=== PATIENT | male | born 1985 | race Caucasian/White ===

== ENCOUNTER 2019-10-19 14:44 | Emergency (ER) | payer MEDICAID, SELFPAY ==
[2019-10-19 15:15] VITALS: BP 142/102; PULSE 113; RESP 20; TEMP 36.8; O2SAT 98; BMI 39.9
--- NOTE | 2019-10-19 15:41 | HMH.EDUTC ---
[facility] Disposition Clinical Impression: Dental abscess Disposition: Home, Self-Care Condition on Discharge: Good Instructions: Tooth Abscess, Ibuprofen, Clindamycin Additional Instructions: Call and make appointment today with dentist, could take you several weeks to get in *Take medication as prescribed Follow up with Dentist as advised Return if needed Straight to ER if any life threatening symptoms Prescriptions: Ibuprofen [Ibuprofen 800mg Tablet] 800 mg PO Q8HP PRN #20 tab PRN Reason: Moderate Pain Transmission Status: Received by [id number] clindamycin HCL [Clindamycin HCl 300mg Cap] 300 mg PO Q8 7 Days #21 cap Transmission Status: Received by [id number] Referrals: Toribio Conroy DO [Primary Care Provider] - As needed Rivera Stephenson [Referring] - Time of Disposition: 15:47 Medical Decision Making - Eder Inquiry Pt receiving controlled substance: No Eder was queried for this patient: No Vital Signs: 10/19/19 15:15 Temperature 98.2 F Temperature Source Oral Pulse Rate [Right Brachial] 113 H Respiratory Rate 20 Blood Pressure [Right Arm] 142/102 H Blood Pressure Mean [Right Arm] 115 Blood Pressure Source [Right Arm] Automatic Cuff Blood Pressure Position [Right Arm] Sitting 02 Sat by Pulse Oximetry 98 Oxygen Delivery Method Room Air Orders (Tests/Meds): ED MEDICATIONS Discontinued Medications Generic Name Dose Route Start Last Admin Trade Name Freq PRN Reason Stop Dose Admin Benzocaine/Butamben/Tetracaine HCl 1 gm 10/19/19 15:47 10/19/19 15:54 Cetacaine [place] TP 10/19/19 15:48 1 gm ONCE ONE Administration Lidocaine HCl 15 ml 10/19/19 15:47 10/19/19 15:54 Lidocaine 2% Viscous Solution 15ml Udc PO 10/19/19 15:48 15 ml ONCE ONE Administration [facility] HPI - General Stated complaint: abcessed tooth Time Seen by Provider: 10/19/19 15:41 Mode of Arrival: Ambulatory Source of Information: Patient Limitations: No Limitations Description of Symptoms (Recalled from Triage Doc. by RN): PATIENT C/O ABSCESS TOOTH X 3 DAYS HEENT Symptoms (Recalled from RN notes): Yes Resp Symptoms (Recalled from RN notes): No Skin Symptoms (Recalled from RN notes): No MS Symptoms (Recalled from RN notes): No Functional Status (Recalled from RN notes): WNL - History of Present Illness Provider Complaint: Patient states that he has been having swelling in his left lower jaw area that has continued to get worse over the last 3 days States that he has a tooth back there that is broken off and had several decaying and broken teeth States that today swelling was worse and he was afraid he may have an abscess - Related Data Previous Rx's Medication Instructions Recorded Ibuprofen [Ibuprofen 800mg 800 mg PO Q8HP PRN #20 tab 10/19/19 Tablet] clindamycin HCL [Clindamycin HCl 300 mg PO Q8 7 Days #21 cap 10/19/19 300mg Cap] Allergies Allergy/AdvReac Type Severity Reaction Status Date / Time Penicillins Allergy Verified 10/19/19 15:19 - Worker's Comp Is this a Worker's Comp case?: No [facility] History - Hepatitis A Screen Drug use history?: No High risk sexual behaviors?: No History of sexually transmitted infection?: No Currently employed?: No Childcare worker?: No Do you have indoor plumbing?: Yes Do you have electricity?: Yes Attestation statement:: This patient has been screened for Hepatitis A risk factors. I have reviewed the patient's past medical history: Yes Medical History: Denies:: Diabetes Mellitus Type 2, Hypertension Other Surgeries: Yes: No Previous Surgery - Social History Smoking Status: Never smoker Tobacco Type: smokeless tobacco # Packs/Day (cigarettes): 0 Alcohol Intake: never Alcohol Intake Frequency:: holidays/special occasions only Occupational Status: other ROS Obtained: Yes All systems reviewed & no additional complaints, Yes Systems reviewed as appropriate & no additional complaints - Constitu
[2019-10-19 16:19] VITALS: BP 152/102; PULSE 113; RESP 20; TEMP 36.8; O2SAT 98
== END 2019-10-19 16:22 | disposition home or self-care (01) ==
PROVIDERS: Emergency Provider Nurse Practitioner; PCP Family Medicine
DX: K04.7 Periapical abscess without sinus (principal); F17.290 Nicotine dependence, other tobacco product, uncomplicated
CPT/HCPCS: 99201

== ENCOUNTER 2021-05-24 12:39 | Emergency (ER) | payer SELFPAY ==
[2021-05-24 12:40] VITALS: BP 126/86; PULSE 118; RESP 18; TEMP 37.8; O2SAT 95; BMI 39.9
--- NOTE | 2021-05-24 12:56 | XR_ITS ---
FINAL REPORT TECHNIQUE: Single view chest CLINICAL HISTORY: SOA, fever, cough, nonsmoker FINDINGS: A single view of the chest was obtained. The heart and mediastinum are within normal limits. There are bilateral pulmonary opacities consistent with bilateral pneumonia, left greater than right. There is no pneumothorax. Osseous structures are unremarkable. IMPRESSION: Bilateral pulmonary opacities consistent with bilateral pneumonia, left greater than right. Reviewed, Interpreted and Dictated by Junior Malone III, MD Transcribed by Mae Hargrove Authenticated by Junior Malone III, MD on 05/24/2021 01:59:54 PM [facility]
[2021-05-24 13:12] LABS: Influenza A, PCR Not Detected (NotDetected); Influenza B, PCR Not Detected (NotDetected)
--- NOTE | 2021-05-24 13:24 | HMH.EDGENADL ---
ED Disposition Clinical Impression: COVID-19 Disposition: Home, Self-Care Condition on Discharge: Good Instructions: DI for COVID-19 (Suspected or Confirmed ) Referrals: Toribio Conroy DO [Primary Care Provider] - - Critical Care Critical Care Time: No Attestation: On 05/24/21, the high probability of a clinically significant, sudden or life threatening deterioration of the following system(s) required my full and direct attention, intervention and personal management. The time I documented below is in addition to time spent performing reported procedures but includes the following listed in this critical care notation. Medical Decision Making - Eder Inquiry Pt receiving controlled substance: No Vital Signs: 05/24/21 12:40 Temperature 100.0 F H Temperature Source Oral Pulse Rate [Right Radial] 118 H Respiratory Rate 18 Blood Pressure [Right Arm] 126/86 Blood Pressure Mean [Right Arm] 99 Blood Pressure Source [Right Arm] Automatic Cuff Blood Pressure Position [Right Arm] Sitting 02 Sat by Pulse Oximetry 95 Oxygen Delivery Method Room Air - Lab Data Lab Results 05/24/21 12:56: SARS-CoV-2 (PCR) Detected A, Influenza A Untype (PCR) Not detected, Influenza Type B (PCR) Not detected General Adult HPI - General Chief complaint: Fever Stated complaint: cough,SOA,congested,vomiting Time Seen by Provider: 05/24/21 12:40 Mode of Arrival: Ambulatory Limitations: No Limitations Description of Symptoms (Recalled from ER Triage Doc. by RN): Pt c/o fever, SOA, N/V x5 days - History of Present Illness HPI narrative: few days cough dry fever, myalgias Onset (ago): day(s) Radiation: non-radiation Severity: moderate Consistency: constant Relieving factors: none Exacerbating factors: none Associated symptoms: nausea/vomiting - Related Data Previous Rx's Medication Instructions Recorded Ibuprofen [Ibuprofen 800mg 800 mg PO Q8HP PRN #20 tab 10/19/19 Tablet] clindamycin HCL [Clindamycin HCl 300 mg PO Q8 7 Days #21 cap 10/19/19 300mg Cap] Allergies Allergy/AdvReac Type Severity Reaction Status Date / Time Penicillins Allergy Verified 10/19/19 15:19 [facility] History - Hepatitis A Screen Drug use history?: No High risk sexual behaviors?: No History of sexually transmitted infection?: No Currently employed?: No Childcare worker?: No Do you have indoor plumbing?: Yes Do you have electricity?: Yes Attestation statement:: This patient has been screened for Hepatitis A risk factors. Medical History: Denies:: Diabetes Mellitus Type 2, Hypertension Other Surgeries: Yes: No Previous Surgery - Social History Smoking Status: Never smoker Tobacco Type: smokeless tobacco # Packs/Day (cigarettes): 0 Alcohol Intake: never Alcohol Intake Frequency:: holidays/special occasions only Occupational Status: other ROS Obtained: Yes All systems reviewed & no additional complaints Physical Exam - General General appearance: alert, in no apparent distress - Head Head exam: atraumatic, normocephalic - Eye Eye exam: Present: normal appearance, PERRL, EOMI - Chest Chest inspection: Present: normal inspection, symmetric chest wall rise - Respiratory Respiratory exam: Present: normal lung sounds bilaterally. Absent: respiratory distress, wheezes - Cardiovascular Cardiovascular exam: Present: regular rate, normal rhythm. Absent: bradycardia - Abdominal Exam Abdominal exam: Present: soft. Absent: distention, tenderness - Neurological Exam Neurological exam: Present: alert, oriented X3, CN II-XII intact - Skin Skin exam: Present: warm, intact, normal color. Absent: rash
[2021-05-24 13:34] LABS: Coronavirus 19, PCR Detected (NotDetected)
[2021-05-24 14:35] VITALS: BP 126/85; PULSE 118; RESP 20; TEMP 37.8; O2SAT 99
== END 2021-05-24 14:40 | disposition home or self-care (01) ==
PROVIDERS: Emergency Provider Emergency Medicine; PCP Family Medicine
DX: U07.1 COVID-19 (principal)
CPT/HCPCS: 71045; 99282; C9803; U0003; U0005

== ENCOUNTER 2022-02-06 15:37 | Emergency (ER) | payer SELFPAY ==
[2022-02-06 15:42] VITALS: BP 170/104; PULSE 128; RESP 18; TEMP 36.9; O2SAT 100; BMI 39.5
--- NOTE | 2022-02-06 16:14 | CT_ITS ---
PROCEDURE INFORMATION: Exam: CT Abdomen And Pelvis With Contrast Exam date and time: 02/06/2022 4:18 PM Age: 36 years old Clinical indication: Abdominal pain; Additional info: Ruq pain TECHNIQUE: Imaging protocol: Computed tomography of the abdomen and pelvis with contrast. Radiation optimization: All CT scans at this facility use at least one of these dose optimization techniques: automated exposure control; mA and/or kV adjustment per patient size (includes targeted exams where dose is matched to clinical indication); or iterative reconstruction. Contrast material: ISOVUE; Contrast volume: 75 ml; Contrast route: IV; COMPARISON: CR XR CHEST PORTABLE 05/24/2021 1:12 PM FINDINGS: Liver: Normal. No mass. Gallbladder and bile ducts: Normal. No calcified stones. No ductal dilation. Pancreas: Normal. No ductal dilation. Spleen: Normal. No splenomegaly. Adrenal glands: Normal. No mass. Kidneys and ureters: Normal. No hydronephrosis. Stomach and bowel: Unremarkable. No obstruction. No mucosal thickening. Appendix: No evidence of appendicitis. Intraperitoneal space: Unremarkable. No free air. No significant fluid collection. Vasculature: Unremarkable. No abdominal aortic aneurysm. Lymph nodes: Unremarkable. No enlarged lymph nodes. Urinary bladder: Unremarkable as visualized. Reproductive: Unremarkable as visualized. Bones/joints: Bilateral L5 spondylolysis without spondylolisthesis. Soft tissues: Unremarkable. IMPRESSION: 1. No acute findings within the abdomen or pelvis. 2. Bilateral L5 spondylolysis without spondylolisthesis.
[2022-02-06 16:15] LABS: Chloride 98 mmol/L (98-107); Sodium 140 mmol/L (136-145)
[2022-02-06 16:18] LABS: Alanine Aminotransferase 36 U/L (12-78); Albumin Level 4.8 g/dl (3.5-5.0); Albumin/Globulin Ratio 1.4 (1.1-1.8); Alkaline Phosphatase 72 U/L (38-126); Aspartate Amino Transferase 40 U/L (17-59); Bilirubin,Total 0.3 mg/dl (0.2-1.3); Blood Urea Nitrogen 8 mg/dl (9-20); Carbon Dioxide 29 mmol/L (22.0-30.0); Creatinine Clearance Estimated 217 mL/min (50-200); Estimated Glomerular Filt Rate 111 ml/min (>60); GFR (African American) 134 ML/MIN (>60); Globulin 3.4 g/dL (1.3-3.2); Total Protein,Serum 8.2 g/dl (6.3-8.2)
[2022-02-06 16:19] LABS: Calcium 9.1 mg/dl (8.4-10.2); Glucose 109 mg/dl (74-100)
[2022-02-06 16:27] LABS: Lactic Acid 2.3 mmol/L (0.7-2.1); Lipase 84 U/L (23-300)
--- NOTE | 2022-02-06 16:28 | HMH.EDABDPAI ---
Discharge Plan Disposition Patient Disposition: Home, Self-Care Condition: Good Prescriptions Prescriptions: New ibuprofen [IBU] 800 mg tablet 800 mg PO TIDP PRN (Reason: Moderate Pain) Qty: 20 0RF methocarbamol 750 mg tablet 750 mg PO QID 7 Days Qty: 28 0RF No Action clindamycin HCl 300 MG capsule 300 mg PO Q8 7 Days Qty: 21 0RF ibuprofen 800 MG tablet 800 mg PO Q8HP PRN (Reason: Moderate Pain) Qty: 20 0RF Referrals Follow up/Referrals: Provider,Referral, [Primary Care Provider] - See instructions Clinical Impressions Clinical Impression: Abdominal wall contusion Instructions Patient Instructions: DI for Acute Abdominal Pain Discharge ED Provider: Abner Gupta Abdominal Pain HPI General Chief Complaint: Abdominal Pain Stated Complaint: stomach and back pain Time Seen by Provider: 02/06/22 15:40 Mode of Arrival: Ambulatory Source of Information: Patient Limitations: No Limitations Description of Symptoms (Recalled from ER Triage Doc. by RN): Pt c/o RUQ pain and R flank pain that began approx 2 days ago. Pt describes pain as constant and sharp in nature. Pt denies n/v/d or fever. History of Present Illness complaint: abdominal pain Onset (ago): day(s) (2) Consistency: colicky Location: RUQ Severity: moderate Severity scale (1-10): 5 Quality: stabbing, aching and sharp Radiation: back Relieving factors: nothing Exacerbating factors: eating Associated symptoms: nausea Related Data Previous Rx's Medication Instructions Recorded clindamycin HCl 300 mg capsule 300 mg PO Q8 7 days #21 caps 10/19/19 ibuprofen 800 mg tablet 800 mg PO Q8HP PRN Moderate Pain 10/19/19 #20 tabs ibuprofen 800 mg tablet (IBU) 800 mg PO TIDP PRN Moderate Pain 02/06/22 #20 tabs methocarbamol 750 mg tablet 750 mg PO QID 7 days #28 tabs 02/06/22 Allergies Allergy/AdvReac Type Severity Reaction Status Date / Time Penicillins Allergy Verified 10/19/19 15:19 [facility] Social History Smoking Status: Never smoker alcohol intake: never current occupational status: other Travel in the last 8 weeks: None ROS Obtained: Yes All systems reviewed & no additional complaints except as documented Constitutional Constitutional: Denies chills, Denies fever(s) and Denies headache(s) ENT Ears, Nose, Mouth, and Throat: Denies headache(s) Cardiovascular Cardiovascular: Denies chest pain and Denies dyspnea Respiratory Respiratory: Denies dyspnea Gastrointestinal Gastrointestingal: Reports abdominal pain and nausea Musculoskeletal Musculoskeletal: Denies arthralgias Integumentary/Breasts Skin/Breast: Denies rash Neurologic Neurologic: Denies headache(s) Physical Exam General General appearance: alert and in no apparent distress Eye Eye exam: Present normal appearance, PERRL and EOMI Respiratory Respiratory exam: Present normal lung sounds bilaterally; Absent respiratory distress Cardiovascular Cardiovascular exam: Present regular rate and normal rhythm Abdominal Exam Abdominal exam: Present soft; Absent distention, guarding, rebound, rigidity or mass Abdominal tenderness: Present RUQ and moderate Extremities Exam Extremities exam: Present normal inspection and full ROM; Absent tenderness Neurological Exam Neurological exam: Present alert, oriented X3, CN II-XII intact and normal gait Skin Skin exam: Present warm; Absent rash Medical Decision Making Medical Records Medical records reviewed: Yes I reviewed the patient's medical records. Eder Inquiry Pt receiving controlled substance: No Vital Signs: 02/06/22 15:42 Temperature 98.5 F Temperature Source Oral Pulse Rate [Right Radial] 128 H Respiratory Rate 18 Blood Pressure [Right Arm] 170/104 H Blood Pressure Mean [Right Arm] 126 Blood Pressure Source [Right Arm] Automatic Cuff Blood Pressure Position [Right Arm] Sitting 02 Sat by Pulse Oximetry 100 Oxygen Delivery
[2022-02-06 16:29] LABS: Basophils # 0.1 K/mm3 (0-0.2); Basophils % 1.2 % (0.1-2.0); Eosinophils # 0.3 K/mm3 (0.0-0.4); Eosinophils % 2.7 % (0.1-12.0); Hemoglobin 14.4 g/dL (14.1-18.0); Lymphocytes # 2.1 K/mm3 (0.7-4.5); Lymphocytes % 21.9 % (10-50); Mean Corpuscular HGB Conc 32.1 g/dL (31.8-35.4); Mean Corpuscular Volume 90.6 fl (80-94); Mean Platelet Volume 7.4 fl (7.4-10.4); Monocytes # 0.3 K/mm3 (0.1-1.0); Monocytes % 3.1 % (1.7-9.3); Neutrophils # 6.8 K/mm3 (1.8-7.8); Neutrophils % 71.1 % (37.0-80.0); Platelet Count 429 K/mm3 (142-424); Red Blood Count 4.97 M/mm3 (4.60-6.20); Red Cell Distribution Width 12.8 % (11.5-17.5); White Blood Count 9.6 K/mm3 (4.8-10.8)
[2022-02-06 17:16] VITALS: BP 137/98; PULSE 94; RESP 18; TEMP 36.9; O2SAT 98
[2022-02-06 20:10] LABS: Reflex Lactic Add Lactic Reflex
== END 2022-02-06 17:20 | disposition home or self-care (01) ==
PROVIDERS: Emergency Provider Emergency Medicine
DX: S30.1XXA Contusion of abdominal wall, initial encounter (principal)
CPT/HCPCS: 74177; 80053; 83605; 83690; 85025; 96365; 96375; 99284; J2405; Q9967

== ENCOUNTER 2024-12-29 12:32 | Emergency (ER) | payer SELFPAY ==
[2024-12-29 12:42] VITALS: BMI 27.1
[2024-12-29 12:46] VITALS: BP 142/95; PULSE 101; RESP 18; TEMP 36.9; O2SAT 100; BMI 39.9
--- NOTE | 2024-12-29 12:48 | HMH.EDGENADL ---
Discharge Plan Disposition Patient Disposition: Home, Self-Care Prescriptions Prescriptions: New sulfamethoxazole-trimethoprim [Bactrim DS] 800-160 mg tablet 1 tab PO BID 7 Days Qty: 14 0RF No Action clindamycin HCl 300 MG capsule 300 mg PO Q8 7 Days Qty: 21 0RF ibuprofen 800 MG tablet 800 mg PO Q8HP PRN (Reason: Moderate Pain) Qty: 20 0RF ibuprofen [IBU] 800 mg tablet 800 mg PO TIDP PRN (Reason: Moderate Pain) Qty: 20 0RF methocarbamol 750 mg tablet 750 mg PO QID 7 Days Qty: 28 0RF Referrals Follow up/Referrals: Provider,Referral, MD [Primary Care Provider, Medical] - See instructions Activity Restrictions/Add. Instructions Additional Instructions/Restrictions: As discussed we performed an incision and drainage with a presumptive diagnosis of an abscess however the fluid pocket was largely blood. While it is possible that it may have been an infected hematoma and the working diagnosis is primarily a hematoma which was evacuated. A vessel loop was placed please floss as discussed 1 or 2 times a day until there is no more bleeding drainage at which point you can cut the vessel loop out. Return with any spreading redness or other concerns such as fevers etc. Clinical Impressions Clinical Impression: Thigh hematoma Instructions Patient Instructions: DI for Skin Abscess Print Language Print Language: Maldivian Discharge ED Provider: Estiven Winchester General Adult HPI General Chief complaint: Skin/Abscess/Foreign Body Stated complaint: abcess between legs Time Seen by Provider: 12/29/24 12:39 History of Present Illness HPI narrative: Patient is a 39-year-old male presenting today with left medial thigh discomfort that he believes is an abscess. This started 4 days ago said he felt like it was an boil coming up and he placed a warm compress on this try to make it come to ahead he stated. However this can only continue to get worse therefore he presented to the emergency department. No fevers or chills or any other significant symptoms. Related Data Previous Rx's ?Medication ?Instructions ?Recorded clindamycin HCl 300 mg capsule 300 mg PO Q8 7 days #21 caps 10/19/19 ibuprofen 800 mg tablet 800 mg PO Q8HP PRN Moderate Pain 10/19/19 #20 tabs ibuprofen 800 mg tablet (IBU) 800 mg PO TIDP PRN Moderate Pain 02/06/22 #20 tabs methocarbamol 750 mg tablet 750 mg PO QID 7 days #28 tabs 02/06/22 sulfamethoxazole 800 1 tab PO BID 7 days #14 tabs 12/29/24 mg-trimethoprim 160 mg tablet (Bactrim DS) Allergies Allergy/AdvReac Type Severity Reaction Status Date / Time Penicillins Allergy Verified 10/19/19 15:19 [facility] Disclaimer: The information contained in this section may have been updated after the patient was seen, as this information can be updated by other users. Social History Smoking Status: Never smoker alcohol intake: never current occupational status: other Travel in the last 8 weeks?: None Have you lived/traveled outside [place] in past 30 days?: No Contact w/someone who lives/traveled outside [place] past 30 days?: No Exposure to someone with infectious disease in past 14 days?: No Do you have a fever (greater than 100.4 F or 38 C)?: No Have you tested positive for COVID-19?: No Exposed to someone with COVID-19 in past 14 days?: No Do you have a sore throat?: No Do you have a cough?: No Do you have any weakness?: No Do you have any diarrhea?: No Are you experiencing any unusual bleeding?: No Do you have any muscle aches/pain?: No Do you have any abdominal pain?: No Are you experiencing loss of taste or smell?: No Other Medical History Have you received the Flu Vaccine for this season: No Have you received the Pneumonia Vaccine: No ROS Obtained: Yes All systems reviewed & no additional complaints except as documented Physical Exam General General appearance: alert and in no apparent distress Respiratory Respiratory exam: Present normal lung sounds bilaterally Cardiovascular Cardiovascular exam: Present regular rate Extremities Exam Extremities exam: Present other (On the medial aspect of the proximal left thigh there is a 3 x 3 cm of erythema and induration and tenderness this is not near the rectal region) Neurological Exam Neurological exam: Present alert Medical Decision Making Medical Records Screening: Per USPSTF and CDC recommendations, given the prevalence of disease in our region, it is our hospital?s policy to screen for HIV and viral Hepatitis for all patients aged 18 and over and those with ongoing risk factors. Eder Inquiry Pt receiving controlled substance: No Vital Signs: 12/29/24 12:46 Temperature 98.5 F Temperature Source Oral Pulse Rate [Left Brachial] 101 H Respiratory Rate 18 Blood Pressure [Left Arm] 142/95 H Blood Pressure Mean [Left Arm] 110 Blood Pressure Source [Left Arm] Automatic Cuff Blood Pressure Position [Left Arm] Sitting 02 Sat by Pulse Oximetry 100 Oxygen Delivery Method Room Air Orders (Tests/Meds): ED MEDICATIONS Discontinued Medications Generic Name Dose Route Start Last Admin Trade Name Freq PRN Reason Stop Dose Admin Trimethoprim/Sulfamethoxazole 1 each 12/29/24 12:47 12/29/24 12:54 Sulfa/Trimethoprim 1 Tablet PO 12/29/24 12:48 1 each ONCE ONE Administration ORDERS Category Date Time Status POCUS Point of Care (ER Only) Stat Exams 12/29/24 12:42 Ordered Medical Decision Narrative: Patient with above history and physical bedside ultrasound confirmed that there is a localize drainable fluid collection consistent with an abscess will perform an I&D administer first dose of antibiotics and send the patient home on antibiotics with return precautions. Incision and drainage performed which yielded 10 cc of bloody material with complete evacuation of the fluid. This is consistent with a hematoma. Given the fact that patient significant pain we will still treat this as a possible infection but largely this is seemingly just a hematoma likely from the chronic superficial friction of his medial thighs. Vessel loop was placed and return precautions wound management were discussed I still advised that he take a few days of antibiotics just to make sure this was not of concomitant infection. No indication for any cultures in this particular situation. Patient was discharged in a stable and improved condition. States that his symptoms dramatically improved after the drainage. Procedures Abscess I/D Site: lower extremity Side (if applicable): left Local Anesthetic: lidocaine 1% and with epi Amount of anesthesia used (mL): 5 Technique: incised with #11 blade Amount of fluid expressed (mL): 10 Irrigation: No Packing used?: plain (Vessel loop) Miscellaneous Procedure Procedure Performed: Limited soft tissue ultrasound Indication: Soft tissue swelling of the medial aspect of the left thigh Identified structures: Location: Left thigh Findings: 3 x 3 cm area of well-defined fluid collection no significant surrounding cellulitis Impression: Localize drainable fluid collection consistent with an abscess without any definitive radiographic evidence of cellulitis Images were saved to permanent archive The study was technically adequate Soft Tissue CPT Codes: CPT Neck: 89216-80 CPT Upper extremity: 96826-04 CPT Axilla: 56687-79 CPT Chest wall: 16892-78 CPT Breast: 06246-06-SZ/LT (complete), 90155-90-RD/LT (limited), CPT Upper Back: 53811-24 CPT Lower Back: 95399-26 CPT Abdominal Wall: 39207-68 CPT Pelvic Wall: 08984-94 CPT Lower Extremity: 86898-76 CPT Other Soft Tissue: 51706-42 This study was performed by me, and I personally interpreted all images/videos. Based on my clinical judgement, these images were adequate and did not necessitate further imaging. Critical Care Critical Care Time Critical Care Time: No
[2024-12-29] MEDS: SULFA/TRIMETHOPRIM 1 TABLET 1 EACH PO (12:54)
[2024-12-29] MEDS: LIDOCAINE 1% W/EPI 1:100,000 20ML VIAL 3 ML SQ (13:15)
[2024-12-29 13:20] VITALS: BP 142/95; PULSE 101; RESP 18; TEMP 36.9; O2SAT 100
== END 2024-12-29 13:21 | disposition home or self-care (01) ==
PROVIDERS: Emergency Provider Student in an Organized Health Care Education/Training Program
DX: L02.416 Cutaneous abscess of left lower limb (principal)
CPT/HCPCS: 10060; 99282; 99283; J2004

== ENCOUNTER 2025-02-11 08:11 | Emergency (ER) | payer SELFPAY ==
[2025-02-11] VITALS (8 sets, daily range): BP systolic 120–153; BP diastolic 69–106; PULSE 58–88; RESP 18–20; TEMP 36.8–37.1; O2SAT 97–100; BMI 39.9
[2025-02-11 08:20] LABS: Microscopic, Urine URINE MICROSCOPIC (MICROSCOPIC)
[2025-02-11 08:27] LABS: Bilirubin,Urine Negative (Negative); Color,Urine YELLOW (Yellow); Glucose,Urine (UA) Negative (Negative); Ketones,Urine Negative (Negative); Leukocyte Esterase,Urine Negative (Negative); PH,Urine 6.0 (5.0-8.5); Protein,Urine Negative (Negative); Specific Gravity, Urine >= 1.030 (1.005-1.030); Urobilinogen,Urine 0.2 EU/dl (0.2)
--- NOTE | 2025-02-11 08:32 | CT_ITS ---
FINAL REPORT TECHNIQUE: After the administration of intravenous contrast, axial images were obtained through the abdomen and pelvis by computed tomography. The study was performed with techniques to keep radiation dose as low as reasonably achievable, (ALARA). Individual dose reduction techniques using automated exposure control or adjustment of mA and/or kV according to the patient's size were employed. CLINICAL HISTORY: Lower abdominal pain COMPARISON: 02/06/2022 FINDINGS: Abdomen: The lung bases are clear. The liver parenchyma demonstrates moderate fatty infiltration. The gallbladder is present. The spleen, pancreas, adrenals and kidneys appear unremarkable. The aorta is normal in caliber. There is no free fluid or adenopathy. Note is made of mild hazy stranding in the periaortic fat, which is stable when compared to the prior exam of 2021 and of uncertain significance. Pelvis: The appendix is normal in appearance. The urinary bladder is decompressed. There is no free fluid or adenopathy. Note is once again made of bilateral pars defects at the L5 level. IMPRESSION: No acute intra-abdominal process. Reviewed, Interpreted and Dictated by Randy Lopes MD Transcribed by Vandana Hernandez Authenticated and . [facility]
[2025-02-11 08:36] LABS: Squamous Epithelial Cell,Urine Occasional #/hpf (0-5); WBC,Urine Occasional #/hpf (0-3)
[2025-02-11 08:37] LABS: Bacteria,Urine Trace /lpf; Mucus,Urine 2+ /lpf
--- NOTE | 2025-02-11 08:43 | HMH.EDGENADL ---
Discharge Plan Disposition Patient Disposition: Home, Self-Care Condition: Good Prescriptions Prescriptions: No Action sulfamethoxazole-trimethoprim [Bactrim DS] 800-160 mg tablet 1 tab PO BID 7 Days Qty: 14 0RF clindamycin HCl 300 MG capsule 300 mg PO Q8 7 Days Qty: 21 0RF ibuprofen 800 MG tablet 800 mg PO Q8HP PRN (Reason: Moderate Pain) Qty: 20 0RF ibuprofen [IBU] 800 mg tablet 800 mg PO TIDP PRN (Reason: Moderate Pain) Qty: 20 0RF methocarbamol 750 mg tablet 750 mg PO QID 7 Days Qty: 28 0RF Referrals Follow up/Referrals: Provider,Referral, MD [Primary Care Provider, Medical] - See instructions Activity Restrictions/Add. Instructions Additional Instructions/Restrictions: Please follow up with your primary care doctor for further workup of your symptoms. If you develop any new or worsening symptoms please return to the ER for further evaluation. Clinical Impressions Clinical Impression: Abdominal pain Qualifiers: Abdominal location: lower abdomen, unspecified Qualified Code(s): R10.30 - Lower abdominal pain, unspecified Instructions Patient Instructions: DI for Acute Abdominal Pain Print Language Print Language: Par[place] Discharge ED Provider: Lan Keyes Adult HPI General Chief complaint: Abdominal Pain Stated complaint: bladder pressure/pain Time Seen by Provider: 02/11/25 08:20 Mode of Arrival: Ambulatory Source of Information: Patient Description of Symptoms (Recalled from ER Triage Doc. by RN): pt came in for pain and pressure around his bladder, pt last voided a few hours ago and per patient urine was wnl, pt also last bm was a few hours ago and it was normal as well. upon triage pt bladder scanned showed 0. pt states the discomfort started last night History of Present Illness HPI narrative: Is a 39-year-old male patient, with no significant past medical history or daily medications, who is presenting to the emergency department today for evaluation of abdominal pain. Patient states that his pain began last night and worsened this morning. He describes his pain as diffusely across his lower abdomen and worse in the suprapubic region. He is not experiencing any dysuria, hematuria, or urinary frequency. He does not have a sensation of urinary retention. He denies constipation as well as diarrhea, hematochezia, and melena. He is not experiencing nausea or vomiting. No fevers or chills. He has not had any pain in his testicles or swelling of the testicles. Related Data Previous Rx's ?Medication ?Instructions ?Recorded clindamycin HCl 300 mg capsule 300 mg PO Q8 7 days #21 caps 10/19/19 ibuprofen 800 mg tablet 800 mg PO Q8HP PRN Moderate Pain 10/19/19 #20 tabs ibuprofen 800 mg tablet (IBU) 800 mg PO TIDP PRN Moderate Pain 02/06/22 #20 tabs methocarbamol 750 mg tablet 750 mg PO QID 7 days #28 tabs 02/06/22 sulfamethoxazole 800 1 tab PO BID 7 days #14 tabs 12/29/ mg-trimethoprim 160 mg tablet (Bactrim DS) Allergies Allergy/AdvReac Type Severity Reaction Status Date / Time Penicillins Allergy Verified 10/19/19 15:19 [facility] Disclaimer: The information contained in this section may have been updated after the patient was seen, as this information can be updated by other users. Social History Smoking Status: Never smoker alcohol intake: never current occupational status: other Travel in the last 8 weeks?: None Have you lived/traveled outside [place] in past 30 days?: No Contact w/someone who lives/traveled outside [place] past 30 days?: No Exposure to someone with infectious disease in past 14 days?: No Do you have a fever (greater than 100.4 F or 38 C)?: No Have you tested positive for COVID-19?: No Exposed to someone with COVID-19 in past 14 days?: No Do you have a sore throat?: No Do you have a cough?: No Do you have any weakness?: No Do you have any diarrhea?: No Are you experiencing any unusual bleeding?: No Do you have any muscle aches/pain?: No Do you have any abdominal pain?: No Are you experiencing loss of taste or smell?: No Other Medical History Have you received the Flu Vaccine for this season: No Have you received the Pneumonia Vaccine: No ROS Obtained: Yes Systems reviewed as appropriate & no additional complaints except as documented Physical Exam General General appearance: other (See MDM) Respiratory Respiratory exam: Present other (See MDM) Cardiovascular Cardiovascular exam: Present other (See MDM) Neurological Exam Neurological exam: Present other (See MDM) Medical Decision Making Medical Records Medical records reviewed: Yes I reviewed the patient's medical records. Screening: Per USPSTF and CDC recommendations, given the prevalence of disease in our region, it is our hospital?s policy to screen for HIV and viral Hepatitis for all patients aged 18 and over and those with ongoing risk factors. Eder Inquiry Pt receiving controlled substance: No Eder was queried for this patient: No Vital Signs: 02/11/25 08:17 02/11/25 08:24 02/11/25 08:30 Temperature 98.2 F Temperature Source Oral Pulse Rate 85 88 Pulse Rate [Left Radial] 86 Respiratory Rate 20 Blood Pressure 153/106 H 151/106 H Blood Pressure [Right Arm] 151/106 H Blood Pressure Mean [Right Arm] 121 02 Sat by Pulse Oximetry 99 100 98 Oxygen Delivery Method Room Air 02/11/25 09:04 02/11/25 09:30 02/11/25 10:01 Temperature Temperature Source Pulse Rate 80 81 76 Pulse Rate [Left Radial] Respiratory Rate Blood Pressure 128/86 138/87 120/70 Blood Pressure [Right Arm] Blood Pressure Mean [Right Arm] 02 Sat by Pulse Oximetry 97 98 97 Oxygen Delivery Method Room Air Room Air 02/11/25 10:31 Temperature Temperature Source Pulse Rate 58 L Pulse Rate [Left Radial] Respiratory Rate Blood Pressure 132/69 Blood Pressure [Right Arm] Blood Pressure Mean [Right Arm] 02 Sat by Pulse Oximetry 100 Oxygen Delivery Method Lab Data Lab Results 02/11/25 08:15: Urine Color Yellow, Urine Appearance Clear, Urine pH 6.0, Ur Specific [place] >= 1.030, Urine Protein Negative, Urine Glucose (UA) Negative, Urine Ketones Negative, Urine Blood Negative, Urine Nitrate Negative, Urine Bilirubin Negative, Urine Urobilinogen 0.2, Ur Leukocyte Esterase Negative, Urine RBC None, Urine WBC Occasional, Ur Squamous Epith Cells Occasional, Urine Bacteria Trace, Urine Mucus 2+ 02/11/25 08:48: WBC 7.2, RBC 4.17 L, Hgb 12.4 L, Hct 37.7 L, MCV 90.4, MCH 29.7, MCHC 32.9, RDW 12.6, Plt Count 332, MPV 9.1, Neut % (Auto) 64.4, Lymph % (Auto) 25.9, [place] % (Auto) 5.8, Eos % (Auto) 2.9, Baso % (Auto) 0.6, Neut # (Auto) 4.7, Lymph # (Auto) 1.9, [place] # (Auto) 0.4, Eos # (Auto) 0.2, Baso # (Auto) 0.0, Sodium 139, Potassium 4.0, Chloride 103, Carbon Dioxide 27, Anion Gap 13.0, BUN 9, Creatinine 0.80, Estimated Creat Clear 219, Estimated GFR 109, Est GFR ( Amer) 132, Glucose 112 H, Lactate 1.3, Calcium 9.0, Total Bilirubin < 0.1 L, AST 25, ALT 20, Alkaline Phosphatase 63, Total Protein 7.1, Albumin 4.1, Globulin 3.0, Albumin/Globulin Ratio 1.4, Lipase 67 02/11/25 08:48 02/11/25 08:48 Orders (Tests/Meds): ED MEDICATIONS Generic Name Dose Route Start Last Admin Trade Name Freq PRN Reason Stop Dose Admin Sodium Chloride 10 ml 02/11/25 08:51 02/11/25 08:53 Sodium Chloride 0.9% 10ml Syr (Rad Only) IV 03/13/25 08:50 10 ml NEEDED PRN Administration Maintain IV Site Discontinued Medications Generic Name Dose Route Start Last Admin Trade Name Freq PRN Reason Stop Dose Admin Iopamidol 75 ml 02/11/25 08:51 02/11/25 08:53 Iopamidol-370 (76%);100ml Bottle IV 02/11/25 08:52 75 ml ONCE ONE Administration Morphine Sulfate 4 mg 02/11/25 08:32 02/11/25 08:48 Morphine 4mg/Ml Syringe IV 02/11/25 08:33 4 mg ONCE ONE Administration Ondansetron HCl 4 mg 02/11/25 08:32 02/11/25 08:48 Ondansetron 4mg/2ml Vial IV 02/11/25 08:33 4 mg ONCE ONE Administration ORDERS Category Date Time Status CT abdomen pelvis w con Stat Cat Scan 02/11/25 08:32 Completed CBC w/Auto Diff [Complete Blood Count Auto Diff] Stat Lab 02/11/25 08:48 Completed CMP [Comprehensive Metabolic Panel] Stat Lab 02/11/25 08:48 Completed Lactic Acid Stat Lab 02/11/25 08:48 Completed Lipase Stat Lab 02/11/25 08:48 Completed UA [Urinalysis and Microscopic] Stat Lab 02/11/25 08:15 Completed Urine Culture Stat Micro 02/11/25 08:15 Received Medical Decision Narrative: In summary, this is a 39-year-old male patient who is presenting to the emergency department today for evaluation of diffuse lower abdominal pain that is worst in the suprapubic region. Patient does not have any other associated symptoms related to the GI tract or urinary tract. No testicular symptoms either. He does not have any comorbidities that would complicate his medical management or care. On initial evaluation of the patient they were resting comfortably in no acute distress and nontoxic in appearance. They are hemodynamically stable, saturating well room air, and are neurologically intact. On physical examination the patient is heart and lungs are clear to auscultation bilaterally. No lower extremity pitting edema or erythema. His upper abdomen is soft and nontender to palpation. He does have tenderness in between the left lower quadrant and suprapubic region. He is afebrile. He has very poor dentition and hygiene. I have examined the patient's scrotum and he has a bilateral intact cremasteric reflex and no scrotal skin changes or testicular tenderness. This suggest against testicular torsion and epididymitis as the cause of his symptoms Differential diagnosis includes urinary tract infection, pyelonephritis, diverticulitis, appendicitis, bladder spasm, intra-abdominal abscess, among others. There is no skin findings on abdominal exam to suggest abdominal wall abscess. Workup was initiated with hematologic labs as well as a urine sample and a postvoid residual. Postvoid residual was normal and urinalysis did not show any evidence of urinary tract infection. We will proceed with a CT scan of the abdomen and pelvis at this time. CT scan of the abdomen and pelvis was personally turbid by me and demonstrates no large pneumoperitoneum. Official radiology read is in agreement and states that there is no acute abnormality. Labs personally interpreted by me demonstrate no leukocytosis, no actionable anemia, no electrolyte arrangement or acute kidney injury. Bilirubin is normal and he has no evidence of transaminitis. As stated above, urine studies show no evidence of urinary tract infection. The exact etiology of this patient's pain is unclear. After 4 mg of morphine and 4 mg of Zofran the patient is pain-free. I have advised that he follow-up with his primary care physician and return to the emergency department if he has any new or worsening symptoms. At this time all questions have been answered and all parties are agreeable with the decision to discharge home Critical Care Critical Care Time Critical Care Time: No
[2025-02-11] MEDS: ONDANSETRON 4MG/2ML VIAL 4 MG IV (08:48)
[2025-02-11] MEDS: MORPHINE 4MG/ML SYRINGE 4 MG IV (08:48)
[2025-02-11] MEDS: SODIUM CHLORIDE 0.9% 10ML SYR (RAD ONLY) 10 ML IV (08:53)
[2025-02-11] MEDS: IOPAMIDOL-370 (76%);100ML BOTTLE 75 ML IV (08:53)
[2025-02-11 08:55] LABS: Hematocrit 37.7 % (42.0-52.0); Hemoglobin 12.4 g/dL (14.1-18.0); Immature Granulocytes % 0.4 %; Mean Corpuscular HGB Conc 32.9 g/dL (31.8-35.4); Mean Corpuscular Hemoglobin 29.7 pg (27.0-31.2); Mean Corpuscular Volume 90.4 fl (80-94); Nucleated Red Blood Cells % 0 %; Platelet Count 332 K/mm3 (142-424); Red Blood Count 4.17 M/mm3 (4.60-6.20); Red Cell Distribution Width-SD 41.6 fL; White Blood Count 7.2 K/mm3 (4.8-10.8)
[2025-02-11 09:03] LABS: Albumin Level 4.1 g/dl (3.5-5.0); Chloride 103 mmol/L (98-107); Potassium 4.0 mmoL/L (3.5-5.1); Sodium 139 mmol/L (136-145)
[2025-02-11 09:05] LABS: Alanine Aminotransferase 20 U/L (12-78); Anion Gap 13.0 mEq/L (5-15); Aspartate Amino Transferase 25 U/L (17-59); Blood Urea Nitrogen 9 mg/dl (9-20); Carbon Dioxide 27 mmol/L (22.0-30.0); Creatinine Clearance Estimated 219 mL/min (50-200); Creatinine,Serum 0.80 mg/dl (0.66-1.25); Estimated Glomerular Filt Rate 109 ml/min (>60); GFR (African American) 132 ML/MIN (>60)
[2025-02-11 09:06] LABS: Albumin/Globulin Ratio 1.4 (1.1-1.8); Alkaline Phosphatase 63 U/L (38-126); Calcium 9.0 mg/dl (8.4-10.2); Globulin 3.0 g/dL (1.3-3.2); Glucose 112 mg/dl (74-100); Lipase 67 U/L (23-300); Total Protein,Serum 7.1 g/dl (6.3-8.2)
[2025-02-11 09:32] LABS: Bilirubin,Total < 0.1 mg/dl (0.2-1.3)
== END 2025-02-11 10:50 | disposition home or self-care (01) ==
PROVIDERS: Emergency Provider Student in an Organized Health Care Education/Training Program
DX: R10.30 Lower abdominal pain, unspecified (principal)
CPT/HCPCS: 51798; 74177; 80053; 81001; 83605; 83690; 85025; 87086; 96374; 96375; 99285; J2270; J2405; Q9967

== ENCOUNTER 2025-02-11 15:37 | Emergency (ER) | payer SELFPAY ==
[2025-02-11 15:52] VITALS: BP 132/80; PULSE 62; RESP 16; TEMP 36.8; O2SAT 100; BMI 39.9
--- NOTE | 2025-02-11 18:54 | PC.NURSE ---
Patient was being brought back to room and registration notified that he was leaving.
== END 2025-02-11 18:56 | disposition left against medical advice (07) ==
PROVIDERS: Emergency Provider Student in an Organized Health Care Education/Training Program
DX: Z53.21 Procedure and treatment not carried out due to patient leaving prior to being seen by health care provider (principal)
CPT/HCPCS: 99211; 99283

== ENCOUNTER 2025-02-23 09:05 | Emergency (ER) | payer SELFPAY ==
[2025-02-23 09:16] VITALS: BP 146/109; PULSE 67; RESP 16; TEMP 36.6; O2SAT 100; BMI 39.9
[2025-02-23 09:19] LABS: Microscopic, Urine URINE MICROSCOPIC (MICROSCOPIC)
--- NOTE | 2025-02-23 09:22 | XR_ITS ---
FINAL REPORT CLINICAL HISTORY: Shortness of breath FINDINGS: A portable view of the chest was obtained. There is no prior exam available for comparison. Cardiac and mediastinal silhouettes are within normal limits. The lungs are clear. There is no pleural effusion or pneumothorax. IMPRESSION: No acute process on this portable exam. Reviewed, Interpreted and Dictated by Nava Jimenez MD Transcribed by Afshan Lawrence Authenticated and [facility]
--- NOTE | 2025-02-23 09:24 | US_ITS ---
FINAL REPORT TECHNIQUE: Sonographic images of the right upper quadrant were obtained. CLINICAL HISTORY: RUQ/epigastric pain, worse after eating COMPARISON: None FINDINGS: PANCREAS: Unremarkable. LIVER: There is diffuse fatty infiltration of the liver. No focal hepatic lesion. No intrahepatic biliary ductal dilatation. GALLBLADDER: No gallstones. No gallbladder wall thickening or pericholecystic fluid. COMMON DUCT: 3 mm. Normal for age. RIGHT KIDNEY: The right kidney measures 10.2 cm. There is no hydronephrosis, mass, or stone. FREE FLUID: None. IMPRESSION: Fatty infiltration of the liver without biliary ductal dilatation. Otherwise, unremarkable right upper quadrant ultrasound. Reviewed, Interpreted and Dictated by Nava Jimenez MD Transcribed by Vandana Hernandez Authenticated and [facility]
--- NOTE | 2025-02-23 09:24 | US_ITS ---
FINAL REPORT TECHNIQUE: Sonographic images of the testicles and scrotum were obtained in the longitudinal and transverse planes. CLINICAL HISTORY: testicular swelling FINDINGS: The right testicle measures 3.5 x 4.8 x 2.1 centimeters. There is no intratesticular mass. Epididymis is heterogeneous but nonspecific.. No extratesticular mass is identified. The left testicle measures 3.9 x 2.1 x 2.9 centimeters. There is no intratesticular mass. The epididymis is within normal limits. No extratesticular mass is identified. Color imaging reveals no evidence of testicular torsion. IMPRESSION: No evidence of intratesticular mass or testicular torsion. Mildly heterogeneous right epididymis, nonspecific. Reviewed, Interpreted and Dictated by Nava Jimenez MD Transcribed by Afshan Lawrence Authenticated and [facility]
--- NOTE | 2025-02-23 09:25 | HMH.EDGENADL ---
Discharge Plan Disposition Patient Disposition: Home, Self-Care Condition: Good Prescriptions Prescriptions: New omeprazole 20 mg capsule,delayed release(DR/EC) 20 mg PO DAILY Qty: 30 0RF famotidine [Pepcid] 20 mg tablet 20 mg PO DAILY Qty: 30 0RF No Action sulfamethoxazole-trimethoprim [Bactrim DS] 800-160 mg tablet 1 tab PO BID 7 Days Qty: 14 0RF clindamycin HCl 300 MG capsule 300 mg PO Q8 7 Days Qty: 21 0RF ibuprofen 800 MG tablet 800 mg PO Q8HP PRN (Reason: Moderate Pain) Qty: 20 0RF ibuprofen [IBU] 800 mg tablet 800 mg PO TIDP PRN (Reason: Moderate Pain) Qty: 20 0RF methocarbamol 750 mg tablet 750 mg PO QID 7 Days Qty: 28 0RF Referrals Follow up/Referrals: Oneal Mcdaniel DO [Staff Physician, Family Practice] - See instructions Referral Note: Needs to establish care with PCP Activity Restrictions/Add. Instructions Additional Instructions/Restrictions: You have been seen and evaluated in the emergency department. Your symptoms are most consistent with gastritis. You have been prescribed 2 medications to help with your symptoms. Please avoid spicy foods, acidic foods, carbonated beverages, or tomato-based products. We also recommend you avoid ibuprofen, Aleve, and alcohol. A referral has been placed with Dr. Oneal Mcdaniel to establish care with a primary care provider. Clinical Impressions Clinical Impression: Gastritis Instructions Patient Instructions: DI for Acute Abdominal Pain Print Language Print Language: Nepali Discharge ED Provider: Fanta Hernadez Adult HPI General Chief complaint: Abdominal Pain Stated complaint: Upper abd pain/bloating Time Seen by Provider: 02/23/25 09:10 Mode of Arrival: Ambulatory Source of Information: Patient Description of Symptoms (Recalled from ER Triage Doc. by RN): patient states for one week he has had bloating and epigastric pain that is sharp and constant. he denies n/v. 7/10 pain. History of Present Illness HPI narrative: This is a 39-year-old male who reports past medical history of hypertension, however taken off medications, who presents emergency department with persistent abdominal pain. He was evaluated in this emergency department on 02/11/2025 for similar presentation. He states his pain has changed. Originally he had lower abdominal pain and suprapubic fullness, however he states the pain is now in his upper abdomen. He notes the pain primarily in the epigastric and right upper quadrant. Pain is worsened after eating, approximately 30 minutes after ingestion of food. No specific foods worsen his symptoms. No accompanying fever, headache, chest pain, shortness of breath, nausea, vomiting, diarrhea, dysuria, lower abdominal pain, or flank pain. No previous surgeries. Patient also notes that he has now bilateral testicular swelling, which was not present on previous emergency department visit. Related Data Previous Rx's ?Medication ?Instructions ?Recorded clindamycin HCl 300 mg capsule 300 mg PO Q8 7 days #21 caps 10/19/19 ibuprofen 800 mg tablet 800 mg PO Q8HP PRN Moderate Pain 10/19/19 #20 tabs ibuprofen 800 mg tablet (IBU) 800 mg PO TIDP PRN Moderate Pain 02/06/22 #20 tabs methocarbamol 750 mg tablet 750 mg PO QID 7 days #28 tabs 02/06/22 sulfamethoxazole 800 1 tab PO BID 7 days #14 tabs 12/29/24 mg-trimethoprim 160 mg tablet (Bactrim DS) famotidine 20 mg tablet (Pepcid) 20 mg PO DAILY #30 tabs 02/23/25 omeprazole 20 mg capsule,delayed 20 mg PO DAILY #30 caps 02/23/25 release Allergies Allergy/AdvReac Type Severity Reaction Status Date / Time Penicillins Allergy Verified 10/19/19 15:19 [facility] [place] Disclaimer: The information contained in this section may have been updated after the patient was seen, as this information can be updated by other users. Social History Smoking Status: Never smoker alcohol intake: never current occupational status: other Travel in the last 8 weeks?: None Have you lived/traveled outside US in past 30 days?: No Contact w/someone who lives/traveled outside US past 30 days?: No Exposure to someone with infectious disease in past 14 days?: No Do you have a fever (greater than 100.4 F or 38 C)?: No Have you tested positive for COVID-19?: No Exposed to someone with COVID-19 in past 14 days?: No Do you have a sore throat?: No Do you have a cough?: No Do you have any weakness?: No Do you have any diarrhea?: No Are you experiencing any unusual bleeding?: No Do you have any muscle aches/pain?: No Do you have any abdominal pain?: No Are you experiencing loss of taste or smell?: No Other Medical History Have you received the Flu Vaccine for this season: No Have you received the Pneumonia Vaccine: No ROS Obtained: Yes All systems reviewed & no additional complaints except as documented Physical Exam General General appearance: alert, in no apparent distress and obese Head Head exam: atraumatic Eye Eye exam: Present normal appearance, PERRL and EOMI ENT ENT exam: Present mucous membranes moist Neck Neck exam: Present normal inspection and full ROM; Absent tenderness Chest Chest inspection: Present symmetric chest wall rise; Absent tenderness Respiratory Respiratory exam: Absent respiratory distress, wheezes or accessory muscle use Cardiovascular Cardiovascular exam: Present regular rate and normal rhythm Abdominal Exam Abdominal exam: Present soft and tenderness (Tenderness in the epigastric and right upper quadrant regions, no overlying skin changes. No CVA tenderness. Abdomen is soft without guarding. No peritonitis.); Absent guarding exam: Present normal testicular lie; Absent scrotal swelling Extremities Exam Extremities exam: Present full ROM; Absent tenderness Neurological Exam Neurological exam: Present alert and oriented X3 Psychiatric Psychiatric exam: Present normal affect Skin Skin exam: Present warm and dry Medical Decision Making Medical Records Screening: Per USPSTF and CDC recommendations, given the prevalence of disease in our region, it is our hospital?s policy to screen for HIV and viral Hepatitis for all patients aged 18 and over and those with ongoing risk factors. Eder Inquiry Pt receiving controlled substance: No Vital Signs: 02/23/25 09:16 02/23/25 10:45 02/23/25 11:01 Temperature 97.9 F Temperature Source Oral Pulse Rate 56 L 64 Pulse Rate [Right Radial] 67 Respiratory Rate 16 15 Blood Pressure 147/77 H 123/82 Blood Pressure [Right Arm] 146/109 H Blood Pressure Mean 100 Blood Pressure Mean [Right Arm] 121 Blood Pressure Source [Right Arm] Automatic Cuff Blood Pressure Position [Right Arm] Supine 02 Sat by Pulse Oximetry 100 96 Oxygen Delivery Method Room Air Room Air Lab Data Lab Results 02/23/25 09:11: Urine Color Yellow, Urine Appearance Clear, Urine pH 6.0, Ur Specific [place] <= 1.005, Urine Protein Negative, Urine Glucose (UA) Negative, Urine Ketones Negative, Urine Blood Negative, Urine Nitrate Negative, Urine Bilirubin Negative, Urine Urobilinogen 0.2, Ur Leukocyte Esterase Negative, Urine RBC None, Urine WBC Occasional, Ur Squamous Epith Cells Occasional, Urine Bacteria Trace 02/23/25 09:35: WBC 8.4, RBC 5.00, Hgb 14.8, Hct 45.0, MCV 90.0, MCH 29.6, MCHC 32.9, RDW 12.8, Plt Count 390, MPV 9.5, Neut % (Auto) 73.4, Lymph % (Auto) 18.9, [place] % (Auto) 5.2, Eos % (Auto) 1.7, Baso % (Auto) 0.6, Neut # (Auto) 6.2, Lymph # (Auto) 1.6, [place] # (Auto) 0.4, Eos # (Auto) 0.1, Baso # (Auto) 0.1, Sodium 136, Potassium 4.5, Chloride 98, Carbon Dioxide 29, Anion Gap 13.5, BUN 8 L, Creatinine 0.90, Estimated Creat Clear 195, Estimated GFR 95, Est GFR ( Amer) 115, Glucose 110 H, Calcium 9.4, Total Bilirubin 0.6, AST 30, ALT 23, Alkaline Phosphatase 77, Total Protein 8.4 H, Albumin 4.8, Globulin 3.6 H, Albumin/Globulin Ratio 1.3, Lipase 99 02/23/25 09:35 02/23/25 09:35 Orders (Tests/Meds): ED MEDICATIONS Generic Name Dose Route Start Last Admin Trade Name Freq PRN Reason Stop Dose Admin Sodium Chloride 8 ml 02/23/25 09:21 Sodium Chloride 0.9% 10ml Vial IV 03/25/25 09:20 NEEDED PRN dilute pepcid Discontinued Medications Generic Name Dose Route Start Last Admin Trade Name Freq PRN Reason Stop Dose Admin Acetaminophen 1,000 mg 02/23/25 09:21 02/23/25 09:50 Acetaminophen 500mg Tab PO 02/23/25 09:22 1,000 mg ONCE ONE Administration Famotidine 20 mg 02/23/25 09:21 02/23/25 09:50 Famotidine 20mg/2ml Vial IV 02/23/25 09:22 20 mg ONCE ONE Administration ORDERS Category Date Time Status Chest XR -- portable [XR chest portable] Stat Exams 02/23/25 09:22 Completed US gallbladder Stat Exams 02/23/25 09:24 Completed CBC w/Auto Diff [Complete Blood Count Auto Diff] Stat Lab 02/23/25 09:35 Completed CMP [Comprehensive Metabolic Panel] Stat Lab 02/23/25 09:35 Completed HIV Combo Stat Lab 02/23/25 09:21 Ordered Hepatitis C Ab Qual. W/ RFX Stat Lab 02/23/25 09:21 Ordered Lipase Stat Lab 02/23/25 09:35 Completed UA [Urinalysis and Microscopic] Stat Lab 02/23/25 09:11 Completed US scrotum [US Testicular] Stat Ultrasound 02/23/25 09:24 Completed ECG Data Tracing #1: I reviewed this ECG and interpreted as documented below: EKG shows normal sinus rhythm at a rate of 64. Normal CO, QRS, and QTc intervals. Normal axis. No acute ST elevations or signs of acute subendocardial or transmural ischemia. Medical Decision Narrative: In summary, this is a 39y/o male presenting the emergency department for epigastric and right upper quadrant postprandial pain in addition to testicular swelling. Differential diagnosis includes but is not limited to: Cholecystitis, symptomatic cholelithiasis, pancreatitis, gastritis, peptic ulcer, epididymitis, orchitis, hydrocele On my initial assessment, the patient is hemodynamically stable in no acute distress. Physical exam is notable for epigastric and right upper quadrant tenderness without guarding or peritonitis. I did personally perform a testicular exam which reveals normal testicular lie, cremasteric reflex present bilaterally, and no significant scrotal swelling or tenderness on my exam. I did review emergency department note from 02/28/2025. The patient had a reassuring workup with normal abdominal CT. Etiology of his abdominal pain at that time was unclear, however it seems his abdominal pain at that time was in the lower abdomen which was consistent with patient's reports today. Initial workup will be focused on working up this upper abdominal pain including CBC, CMP, lipase, EKG, and right upper quadrant ultrasound. Considering patient's reports of testicular swelling, I will also order a testicular ultrasound, however I have low clinical concern for torsion or acute process.. Patient received Tylenol and Pepcid for treatment. Labs personally interpreted which demonstrate no leukocytosis or anemia on CBC, platelets within normal limits, no severe electrolytes on CMP, no [place], normal lipase, and LFTs within normal limits. UA shows no acute infectious process and no hematuria. XR personally interpreted chest xray shows no acute findings on my read. Specifically, no pneumothorax, trachea is midline, no subcutaneous emphysema, no pleural effusion, no cardiomegaly, no mass, no obvious bony abnormalities. Radiology reads agreement Ultrasound of the right upper quadrant shows a normal-appearing gallbladder without evidence of cholelithiasis, cholecystitis, or CBD dilatation. Radiology is in agreement. Testicular ultrasound shows no acute findings on my read. No hydrocele, evidence of testicular torsion, or of epididymitis. On reassessment patient reports improvement of his bloating symptoms, however still has some persistent pain in the right upper quadrant. I discussed most likely diagnosis of gastritis and potential peptic ulcer disease. I recommended avoiding acidic or tomato-based foods, carbonated beverages, and alcohol. I additionally recommended avoiding ibuprofen and naproxen. I prescribed Pepcid and omeprazole and gave patient a referral for a primary care provider. He is stable for discharge home. He has no further questions. I encouraged him to return to the ED if symptoms worsen. Critical Care Critical Care Time Critical Care Time: No
[2025-02-23 09:35] LABS: Bilirubin,Urine Negative (Negative); Color,Urine YELLOW (Yellow); Glucose,Urine (UA) Negative (Negative); Ketones,Urine Negative (Negative); Leukocyte Esterase,Urine Negative (Negative); PH,Urine 6.0 (5.0-8.5); Protein,Urine Negative (Negative); Specific Gravity, Urine <= 1.005 (1.005-1.030); Urobilinogen,Urine 0.2 EU/dl (0.2)
--- NOTE | 2025-02-23 09:36 | ECG_ITS ---
APPROVED REPORT Exam: Resting ECG HR:64 bpm ECG Measurements Heart Rate 64 AXES MI 141 P 35 QRSd 103 QRS -18 QT 383 T 61 QTc 392 Conclusion SINUS RHYTHM WITH SINUS ARRHYTHMIA NORMAL ECG No STEMI Electronically signed by : ZOIE LIRA, 02/24/2025 06:33:31
[2025-02-23 09:46] LABS: Hematocrit 45.0 % (42.0-52.0); Hemoglobin 14.8 g/dL (14.1-18.0); Immature Granulocytes % 0.2 %; Mean Corpuscular HGB Conc 32.9 g/dL (31.8-35.4); Mean Corpuscular Hemoglobin 29.6 pg (27.0-31.2); Mean Corpuscular Volume 90.0 fl (80-94); Nucleated Red Blood Cells % 0 %; Platelet Count 390 K/mm3 (142-424); Red Blood Count 5.00 M/mm3 (4.60-6.20); Red Cell Distribution Width-SD 42.1 fL; White Blood Count 8.4 K/mm3 (4.8-10.8)
[2025-02-23] MEDS: FAMOTIDINE 20MG/2ML VIAL 20 MG IV (09:50)
[2025-02-23] MEDS: ACETAMINOPHEN 500MG TAB 1000 MG PO (09:50)
[2025-02-23 09:59] LABS: Chloride 98 mmol/L (98-107)
[2025-02-23 10:00] LABS: Albumin Level 4.8 g/dl (3.5-5.0); Potassium 4.5 mmoL/L (3.5-5.1); Sodium 136 mmol/L (136-145)
[2025-02-23 10:02] LABS: Alanine Aminotransferase 23 U/L (12-78); Albumin/Globulin Ratio 1.3 (1.1-1.8); Anion Gap 13.5 mEq/L (5-15); Aspartate Amino Transferase 30 U/L (17-59); Blood Urea Nitrogen 8 mg/dl (9-20); Carbon Dioxide 29 mmol/L (22.0-30.0); Creatinine Clearance Estimated 195 mL/min (50-200); Creatinine,Serum 0.90 mg/dl (0.66-1.25); Estimated Glomerular Filt Rate 95 ml/min (>60); GFR (African American) 115 ML/MIN (>60); Globulin 3.6 g/dL (1.3-3.2); Total Protein,Serum 8.4 g/dl (6.3-8.2)
[2025-02-23 10:03] LABS: Alkaline Phosphatase 77 U/L (38-126); Bilirubin,Total 0.6 mg/dl (0.2-1.3); Calcium 9.4 mg/dl (8.4-10.2); Glucose 110 mg/dl (74-100); Lipase 99 U/L (23-300)
[2025-02-23 10:10] LABS: Bacteria,Urine Trace /lpf; Squamous Epithelial Cell,Urine Occasional #/hpf (0-5); WBC,Urine Occasional #/hpf (0-3)
[2025-02-23 10:45] VITALS: BP 147/77; PULSE 56
[2025-02-23 11:01] VITALS: BP 123/82; PULSE 64; RESP 15; O2SAT 96
[2025-02-23 11:41] VITALS: BP 142/92; PULSE 84; RESP 16; TEMP 36.7; O2SAT 99
== END 2025-02-23 11:45 | disposition home or self-care (01) ==
PROVIDERS: Emergency Provider Student in an Organized Health Care Education/Training Program
DX: R10.13 Epigastric pain (principal); K29.70 Gastritis, unspecified, without bleeding; R14.0 Abdominal distension (gaseous)
CPT/HCPCS: 71045; 76705; 76870; 80053; 81001; 83690; 85025; 93005; 96374; 99285; J1308

== ENCOUNTER 2025-02-28 18:37 | Emergency (ER) | payer MEDICAID, SELFPAY ==
[2025-02-28 18:44] VITALS: BP 153/96; PULSE 92; RESP 18; TEMP 36.7; O2SAT 98; BMI 38.4
[2025-02-28 20:00] LABS: Microscopic, Urine URINE MICROSCOPIC (MICROSCOPIC)
--- NOTE | 2025-02-28 20:10 | PC.NURSE ---
1953- patient pulled back into triage to obtain updated vitals signs. patient also provided a urine specimen at this time. updated vitals charted in patients chart, urine sent to the lab. patient sent back out to the lobby at this time until treatment space becomes available. patient educated to knock on triage door to let staff know of any worsening symptoms.
[2025-02-28 20:12] LABS: Color,Urine YELLOW (Yellow); Glucose,Urine (UA) Negative (Negative); Ketones,Urine TRACE (Negative); Leukocyte Esterase,Urine Negative (Negative); PH,Urine 6.0 (5.0-8.5); Protein,Urine TRACE (Negative); Specific Gravity, Urine >= 1.030 (1.005-1.030); Urobilinogen,Urine 0.2 EU/dl (0.2)
--- NOTE | 2025-02-28 20:51 | PC.NURSE ---
spoke to lab about UA results. they will be fully resulted in 8 minutes.
[2025-02-28 20:54] LABS: Bilirubin,Urine 2+ (Negative)
[2025-02-28 21:00] LABS: RBC,Urine Occasional #/hpf (0-3)
[2025-02-28 21:01] LABS: Bacteria,Urine 1+ /lpf; Mucus,Urine 2+ /lpf
--- NOTE | 2025-02-28 21:04 | ED_ITS ---
Discharge Plan Disposition Patient Disposition: Home, Self-Care Condition: Good Prescriptions Prescriptions: No Action sulfamethoxazole-trimethoprim [Bactrim DS] 800-160 mg tablet 1 tab PO BID 7 Days Qty: 14 0RF clindamycin HCl 300 MG capsule 300 mg PO Q8 7 Days Qty: 21 0RF ibuprofen 800 MG tablet 800 mg PO Q8HP PRN (Reason: Moderate Pain) Qty: 20 0RF ibuprofen [IBU] 800 mg tablet 800 mg PO TIDP PRN (Reason: Moderate Pain) Qty: 20 0RF methocarbamol 750 mg tablet 750 mg PO QID 7 Days Qty: 28 0RF omeprazole 20 mg capsule,delayed release(DR/EC) 20 mg PO DAILY Qty: 30 0RF famotidine [Pepcid] 20 mg tablet 20 mg PO DAILY Qty: 30 0RF Referrals Follow up/Referrals: Gregorio Candelaria II, MD [Staff Physician, Gastroenterology] - See instructions Provider,MD Kathy [Primary Care Provider, Medical] - See instructions Activity Restrictions/Add. Instructions Additional Instructions/Restrictions: You can continue taking Gas-X as needed. Avoid foods that contribute to bloating such as milk and dairy products or beans. Return to the emergency department for any acute or worsening symptoms. Call Dr. Candelaria if needed for continued abdominal pain. Clinical Impressions Clinical Impression: Abdominal bloating Instructions Patient Instructions: DI for Acute Abdominal Pain Print Language Print Language: Guatemalan Discharge ED Provider: Maia Price Adult HPI General Chief complaint: Abdominal Pain Stated complaint: Bloated Time Seen by Provider: 02/28/25 21:04 Mode of Arrival: Ambulatory Source of Information: Patient Description of Symptoms (Recalled from ER Triage Doc. by RN): Pt states he has been bloated since this morning, states he took a gas-x and it did not help. Pt had a BM this morning. c/o dull abdominal pain. Pt also states the last two mornings he has spit up yellow bile History of Present Illness HPI narrative: Patient is a 39-year-old gentleman who has no significant past rectal history who presents to the emergency department with abdominal pain and bloating. Patient states that he has had bloating since this morning took 1 Gas-X and this did not relieve his symptoms. Patient states that he has had normal bowel movements, patient is still passing gas. Patient denies any vomiting. Patient denies any fevers. Patient denies any chest pain or shortness of breath. Patient denies any prior abdominal surgeries. Patient states that he was seen here a week ago and evaluated for upper abdominal pain. Patient had a negative workup at that time. Related Data Previous Rx's ?Medication ?Instructions ?Recorded clindamycin HCl 300 mg capsule 300 mg PO Q8 7 days #21 caps 10/19/19 ibuprofen 800 mg tablet 800 mg PO Q8HP PRN Moderate Pain 10/19/19 #20 tabs ibuprofen 800 mg tablet (IBU) 800 mg PO TIDP PRN Moder ate Pain 02/06/22 #20 tabs methocarbamol 750 mg tablet 750 mg PO QID 7 days #28 t abs 02/06/22 sulfamethoxazole 800 1 tab PO BID 7 days #14 tabs 12/29/24 mg-trimethoprim 160 mg tablet (Bactrim DS) famotidine 20 mg tablet (Pepcid) 20 mg PO DAILY #30 ta bs 02/23/25 omeprazole 20 mg capsule,delayed 20 mg PO DAILY #30 ca ps 02/23/25 release Allergies Allergy/AdvReac Type Severity Reaction Status Date / Time Penicillins Allergy Verified 10/19/19 15:19 [facility] Disclaimer: The information contained in this section may have been updated after the patient was seen, as this information can be updated by other users. Social History Smoking Status: Never smoker alcohol intake: never current occupational status: other Travel in the last 8 weeks?: None Have you lived/traveled outside US in past 30 days?: No Contact w/someone who lives/traveled outside US past 30 days?: No Exposure to someone with infectious disease in past 14 days?: No Do you have a fever (greater than 100.4 F or 38 C)?: No Have you tested positive for COVID-19?: No Exposed to someone with COVID-19 in past 14 days?: No Do you have a sore throat?: No Do you have a cough?: No Do you have any weakness?: No Do you have any diarrhea?: No Are you experiencing any unusual bleeding?: No Do you have any muscle aches/pain?: No Do you have any abdominal pain?: No Are you experiencing loss of taste or smell?: No Other Medical History Have you received the Flu Vaccine for this season: No Have you received the Pneumonia Vaccine: No ROS Obtained: Yes All systems reviewed & no additional complaints except as documented and Yes Systems reviewed as appropriate & no additional complaints except as documented Physical Exam General General appearance: alert and in no apparent distress Head Head exam: atraumatic, normocephalic and normal inspection Eye Eye exam: Present normal appearance, PERRL and EOMI; Absent scleral icterus ENT ENT exam: Present normal exam and normal external ear exam Neck Neck exam: Present normal inspection and full ROM Chest Chest inspection: Present normal inspection and symmetric chest wall rise Respiratory Respiratory exam: Present normal lung sounds bilaterally; Absent respiratory distress or wheezes Cardiovascular Cardiovascular exam: Present regular rate, normal rhythm and normal heart sounds Abdominal Exam Abdominal exam: Present soft, distention and tenderness (bilateral lower abdominal tenderness R>L); Absent guarding or rebound Extremities Exam Extremities exam: Present normal inspection and full ROM Back Exam Back exam: Present normal inspection and full ROM Neurological Exam Neurological exam: Present alert and oriented X3 Psychiatric Psychiatric exam: Present normal affect and normal mood Skin Skin exam: Present warm and dry Medical Decision Making Medical Records Medical records reviewed: Yes I reviewed the patient's medical records. Screening: Per USPSTF and CDC recommendations, given the prevalence of disease in our region, it is our hospital?s policy to screen for HIV and viral Hepatitis for all patients aged 18 and over and those with ongoing risk factors. Eder Inquiry Pt receiving controlled substance: No Vital Signs: 02/28/25 18:44 Temperature 98.1 F Temperature Source Temporal Artery Scan Pulse Rate [Right] 92 H Respiratory Rate 18 Blood Pressure [Right Arm] 153/96 H Blood Pressure Mean [Right Arm] 115 Blood Pressure Source [Right Arm] Automatic Cuff Blood Pressure Position [Right Arm] Sitting 02 Sat by Pulse Oximetry 98 Oxygen Delivery Method Room Air Lab Data Lab results reviewed: Yes I reviewed the patient's lab results. Lab Results 02/28/25 19:54: Urine Color Yellow, Urine Appearance Clear, Urine pH 6.0, Ur Specific [place] >= 1.030, Urine Protein Trace, Urine Glucose (UA) Negative, Urine Ketones Trace, Urine Blood Negative, Urine Nitrate Negative, Urine Bilirubin 2+ A, Urine Urobilinogen 0.2, Ur Leukocyte Esterase Negative, Urine RBC Occasional, Urine WBC 3-5, Ur Squamous Epith Cells 3-5, Urine Bacteria 1+, Urine Mucus 2+ 02/28/25 21:07: WBC 10.0, RBC 5.03, Hgb 14.8, Hct 44.3, MCV 88.1, MCH 29.4, MCHC 33.4, RDW 12.2, Plt Count 419, MPV 9.4, Neut % (Auto) 65.2, Lymph % (Auto) 24.9, [place] % (Auto) 6.8, Eos % (Auto) 2.1, Baso % (Auto) 0.7, Neut # (Auto) 6.5, Lymph # (Auto) 2.5, [place] # (Auto) 0.7, Eos # (Auto) 0.2, Baso # (Auto) 0.1, Sodium 136, Potassium 4.0, Chloride 97 L, Carbon Dioxide 25, Anion Gap 18.0 H, BUN 10, Creatinine 0.90, Estimated Creat Clear 187, Estimated GFR 95, Est GFR ( Amer) 115, Glucose 104 H, Calcium 9.5, Magnesium 2.3, Total Bilirubin 0.6, AST 34, ALT 31, Alkaline Phosphatase 77, Total Protein 8.8 H, Albumin 4.9, Globulin 3.9 H, Albumin/Globulin Ratio 1.3, Lipase 78 02/28/25 21:07 02/28/25 21:07 Orders (Tests/Meds): ED MEDICATIONS Discontinued Medications Generic Name Dose Route Start Last Admin Trade Name Freq PRN Reason Stop Dose Admin Iopamidol 75 ml 02/28/25 21:49 02/28/25 21:52 Iopamidol-370 (76%);100ml Bottle IV 02/28/25 21:50 75 ml ONCE ONE Administration Sodium Chloride 10 ml 02/28/25 21:49 02/28/25 21:52 Sodium Chloride 0.9% 10ml Syr (Rad Only) IV 02/28/25 21:50 10 ml ONCE ONE Administration ORDERS Category Date Time Status CT abdomen pelvis w con Stat Cat Scan 02/28/25 21:18 Completed CBC w/Auto Diff [Complete Blood Count Auto Diff] Stat Lab 02/28/25 21:07 Completed CMP [Comprehensive Metabolic Panel] Stat Lab 02/28/25 21:07 Completed Lipase Stat Lab 02/28/25 21:07 Completed MAG [Magnesium] Stat Lab 02/28/25 21:07 Completed UA [Urinalysis and Microscopic] Stat Lab 02/28/25 19:54 Completed Medical Decision Narrative: Patient is a 39-year-old male with no significant past medical history who presented to the emergency department with abdominal pain. On arrival, patient was hemodynamically stable with unremarkable vital signs. Differential includes but not limited to: CBC showed no leukocytosis, hemoglobin was stable. CMP was unremarkable except for mildly elevated anion gap. Glucose was normal. UA showed no evidence of infection. Lipase normal. CT abdomen pelvis showed no acute pathology on my review or per radiology. At this time, given patient's unremarkable workup in the emergency department I felt the patient was stable and appropriate for discharge home. Patient was recommended to continue taking Gas-X as needed for bloating and to use some dietary modifications. Patient was sent with Dr. Candelaria referral for GI if needed for continued abdominal pain. Chart review, patient was seen less than a week ago had a right upper quadrant ultrasound that was otherwise normal. Critical Care Critical Care Time Critical Care Time: No
--- NOTE | 2025-02-28 21:18 | CT_ITS ---
PROCEDURE INFORMATION: Exam: CT Abdomen And Pelvis With Contrast Exam date and time: 02/28/2025 9:51 PM Age: 39 years old Clinical indication: Other: Lower abdominal tenderness, R > L TECHNIQUE: Imaging protocol: Computed tomography of the abdomen and pelvis with contrast. Radiation optimization: All CT scans at this facility use at least one of these dose optimization techniques: automated exposure control; mA and/or kV adjustment per patient size (includes targeted exams where dose is matched to clinical indication); or iterative reconstruction. Contrast material: ISOVUE; Contrast volume: 75 ml; Contrast route: IV; COMPARISON: CT ABDOMEN PELVIS W CON 02/11/2025 8:53 AM FINDINGS: Liver: Normal. No mass. Gallbladder and biliary ducts: Normal. No calcified stones. No ductal dilation. Pancreas: Normal. No ductal dilation. Spleen: Normal. No splenomegaly. Adrenal glands: Normal. No mass. Kidneys and ureters: Normal. No hydronephrosis. Stomach and bowel: Unremarkable. No obstruction. No mucosal thickening. Appendix: No evidence of appendicitis. The appendix is visualized and appears normal. Intraperitoneal space: Unremarkable. No free air. No significant fluid collection. Vasculature: Unremarkable. No abdominal aortic aneurysm. Lymph nodes: Unremarkable. No enlarged lymph nodes. Urinary bladder: Unremarkable as visualized. Reproductive: Unremarkable as visualized. Bones/joints: Bilateral L5 spondylolysis. Otherwise unremarkable. No acute fracture. Soft tissues: Unremarkable. IMPRESSION: No acute findings.
[2025-02-28 21:23] LABS: Hematocrit 44.3 % (42.0-52.0); Hemoglobin 14.8 g/dL (14.1-18.0); Immature Granulocytes % 0.3 %; Mean Corpuscular HGB Conc 33.4 g/dL (31.8-35.4); Mean Corpuscular Hemoglobin 29.4 pg (27.0-31.2); Mean Corpuscular Volume 88.1 fl (80-94); Nucleated Red Blood Cells % 0 %; Platelet Count 419 K/mm3 (142-424); Red Blood Count 5.03 M/mm3 (4.60-6.20); Red Cell Distribution Width-SD 39.3 fL; White Blood Count 10.0 K/mm3 (4.8-10.8)
[2025-02-28 21:25] LABS: Albumin Level 4.9 g/dl (3.5-5.0); Chloride 97 mmol/L (98-107)
[2025-02-28 21:26] LABS: Potassium 4.0 mmoL/L (3.5-5.1); Sodium 136 mmol/L (136-145)
[2025-02-28 21:28] LABS: Alanine Aminotransferase 31 U/L (12-78); Albumin/Globulin Ratio 1.3 (1.1-1.8); Alkaline Phosphatase 77 U/L (38-126); Anion Gap 18.0 mEq/L (5-15); Aspartate Amino Transferase 34 U/L (17-59); Bilirubin,Total 0.6 mg/dl (0.2-1.3); Blood Urea Nitrogen 10 mg/dl (9-20); Calcium 9.5 mg/dl (8.4-10.2); Carbon Dioxide 25 mmol/L (22.0-30.0); Creatinine Clearance Estimated 187 mL/min (50-200); Creatinine,Serum 0.90 mg/dl (0.66-1.25); Estimated Glomerular Filt Rate 95 ml/min (>60); GFR (African American) 115 ML/MIN (>60); Globulin 3.9 g/dL (1.3-3.2); Glucose 104 mg/dl (74-100); Lipase 78 U/L (23-300); Total Protein,Serum 8.8 g/dl (6.3-8.2)
[2025-02-28 21:29] LABS: Magnesium 2.3 mg/dl (1.6-2.3)
[2025-02-28] MEDS: IOPAMIDOL-370 (76%);100ML BOTTLE 75 ML IV (21:52)
[2025-02-28] MEDS: SODIUM CHLORIDE 0.9% 10ML SYR (RAD ONLY) 10 ML IV (21:52)
[2025-02-28 23:10] VITALS: BP 120/96; BP 131/78; PULSE 67; PULSE 72; RESP 16; RESP 18; TEMP 37; TEMP 37.1; O2SAT 98
== END 2025-02-28 23:15 | disposition home or self-care (01) ==
PROVIDERS: Emergency Provider Student in an Organized Health Care Education/Training Program
DX: R10.30 Lower abdominal pain, unspecified (principal); R14.0 Abdominal distension (gaseous)
CPT/HCPCS: 74177; 80053; 81001; 83690; 83735; 85025; 99284; Q9967